=== PATIENT | female | born 1935 | race Caucasian/White ===

== ENCOUNTER 2016-10-30 15:58 | Emergency (ER) | payer MEDICARE ==
[~2016-10-30] VITALS: Ht 152.4 cm; Wt 75.0 kg
[2016-10-30 16:30] VITALS: BP 106/59; PULSE 107; RESP 14; TEMP 99.3; O2SAT 99
[2016-10-30] MEDS ORDERED: NAPR250T PO (17:46)
[2016-10-30] MEDS ORDERED: PLAQ200T PO (17:46)
[2016-10-30] MEDS ORDERED: ACET300T2 PO (17:46)
[2016-10-30] MEDS ORDERED: SODIUM CHLORIDE 0.9% FLUSH 5 ML FLUSH IVF PRN (18:30)
[2016-10-30] MEDS ORDERED: MECL-62 PO (18:32)
--- NOTE | 2016-10-30 18:33 | PD ---
HPI . Vertigo Chief Complaint: Dizziness Time Seen by Provider: 18:03 Travel History International Travel<30 days: No Contact w/Intl Traveler<30days: No Traveled to known affect area: No History of Present Illness HPI Patient reports an episode of vertigo earlier today which caused her to fall. She was able to control her fall and was not injured. She states that the dizziness lasted for about an hour and a half. It has now subsided. Patient's daughter reports that she is having increasing difficulty walking and is weak. The patient states that her difficulty walking is secondary to chronic back issues. She states that walking is very painful. The patient denies any blurred vision or headache. She denies any nausea or vomiting. She denies any urinary symptoms. She denies any cough or difficulty breathing. PFS Past Medical History Musculoskeletal: Yes (Chronic back pain R/T OA) Tetanus Vaccination: > 5 Years Influenza Vaccination: No ?: Not Past Surgical History Section: Yes Cholecystectomy: Yes Social History Alcohol Use: No Tobacco Use: No Substance Use: No Allergies-Medications (Allergen,Severity, Reaction): Coded Allergies: Adhesives (Verified Allergy, Severe, Skin issues, 10/30/16) Reported Meds & Prescriptions Reported Meds & Active Scripts Active Reported Plaquenil (Hydroxychloroquine Sulfate) 200 Mg Tab 200 Mg PO BID Take with food Acetaminophen-Codeine 300-30 mg Tab 1 Tab PO Q6HR PRN Naproxen 250 Mg Tab 220 Mg PO DAILY Review of Systems Except as stated in HPI: all other systems reviewed are Neg General / Constitutional: No: Fever, Chills Eyes: No: Blurred Vision HENT: Positive: Vertigo, No: Headaches Cardiovascular: No: Chest Pain or Discomfort Respiratory: No: Shortness of Breath Gastrointestinal: No: Nausea, Vomiting Genitourinary: No: Urgency, Frequency, Dysuria Musculoskeletal: Positive: Arthralgias (back pain) Neurologic: Positive: Weakness, Dizziness Physical Exam Narrative GENERAL: Healthy-appearing elderly lady in no acute distress. SKIN: Warm and dry. HEAD: Atraumatic. Normocephalic. EYES: Pupils equal and round. ENT: No nasal bleeding or discharge. Mucous membranes pink and moist. NECK: Trachea midline. Neck supple. CARDIOVASCULAR: Regular rate and rhythm. Heart sounds are normal. RESPIRATORY: No accessory muscle use. Lungs are clear. GASTROINTESTINAL: Abdomen soft, non-tender, nondistended. MUSCULOSKELETAL: No obvious deformities. No edema. NEUROLOGICAL: Awake and alert. No obvious cranial nerve deficits. Motor grossly within normal limits. Normal speech. PSYCHIATRIC: Appropriate mood and affect; insight and judgment normal. Data Data Last Documented VS Vital Signs Date Time Temp Pulse Resp B/P Pulse Ox O2 Delivery O2 Flow Rate FiO2 10/30/16 16:30 99.3 107 14 106/59 99 Orders Electrocardiogram (10/30/16 18:17) Basic Metabolic Panel (Bmp) (10/30/16 18:17) Complete Blood Count With Diff (10/30/16 18:17) Ckmb (Isoenzyme) Profile (10/30/16 18:17) Troponin I (10/30/16 18:17) Urinalysis - C+S If Indicated (10/30/16 18:17) Ct Brain W/O Iv Contrast(Rout) (10/30/16 18:17) Ecg Monitoring (10/30/16 18:17) Iv Access Insert/Monitor (10/30/16 18:17) Oximetry (10/30/16 18:17) Sodium Chloride 0.9% Flush (Ns Flush) (10/30/16 18:30) MDM Medical Decision Making Medical Screen Exam Complete: Yes Emergency Medical Condition: Yes Differential Diagnosis Differential diagnosis of dizziness includes but is not limited to vertigo, dehydration, acute blood loss, sepsis, ACS Narrative Course Patient presents for evaluation of dizziness. She was urged to come here by her family. She states that her symptoms have completely resolved and she is ready to go home. I have offered a workup that she declines. I think that this is perfectly reasonable. Diagnosis Primary Impression: Vertigo Med/Other Pt SpecificInfo: Prescription(s) given Scripts Meclizine 25 Mg Tab25 Mg PO TID PRN (VERTIGO) #20 TAB Ref 0 Prov:Rosemary Perales MD 10/30/16 Disposition: 01 DISCHARGE HOME Condition: Stable Rosemary Perales MD Oct 30, 2016 18:33
[2016-10-30 19:00] VITALS: BP 108/65; PULSE 92; RESP 18; O2SAT 99
== END 2016-10-30 19:00 | disposition home or self-care (01) ==
LOC: PHED 15:58
DX: R42 Dizziness and giddiness (principal)
CPT/HCPCS: 99283